=== PATIENT | female | born 1985 | race Caucasian/White ===

== ENCOUNTER 2024-08-25 12:10 | Outpatient (AMB) | payer OTHER, SELFPAY ==
--- OUTSIDE RECORDS SUMMARY | 2024-08-25 12:12 | XMS_ITS ---
Author Organization [facility] Address [address] [place] [address] Care Team Providers Care Copy Center Operator Name Role Phone Collins Davidson Primary Care Provider Julianne Blackwood [phone] REASON FOR VISIT NS today's appt 11/29/23 Encounters Encounter Location Date Provider Diagnosis [facility] [address] [place] [address] 11/29/2023 Julianne Hardy Plan Of Treatment No Information Progress Notes * Lilli MARROQUIN PDOB: [birth year] (39 yo F)Acc No.[id number]:11/29/2023 Patient:?Lilli MARROQUIN :1985???Age:38 Y???Sex:Female Address:[address] [place] [address] [address], [place], [address] * true * Date:? Generated for Printi ng/Fashellig/eTransmitting on:?08/25/2024 12:12 PM EDT
--- NOTE | 2024-08-25 13:02 | A.SPINEOV_ITS ---
Intake Visit Reasons: disorder of sacrum Intake Note: Ms. Kingsley is here today regarding a disorder of her sacrum. MRI done @ [facility] (brought disc). Wreath Machine Tender Required: No Assessment & Plan Assessment & Plan (1) Chronic back pain greater than 3 months duration: Code(s): M54.9 - Dorsalgia, unspecified; G89.29 - Other chronic pain Category: Medical Plan Dear colleague Thank you for referring Lilli Kingsley to the office today with a chief complaint of back pain. HPI: This 39-year-old female is complaining of a 247 pain in the center across the lumbar spine that around towards the lateral part of her hips. The pain has consistently present throughout her life but has worsened in recent months. She denies significant radiation down her legs. Crossing her legs over the knee makes the pain more tolerable. She tosses and turns in bed but can lay on her sides. The pain impacts her daily routine. Her weight has significantly increased due to the pain. A SI joint belt does not help. She had an SI joint injection which gave her 50% relief at most. The following conservative treatment options were tried without success antiinflammatories, tylenol, physician guided home exercise plan, cortisone shots PMH: Hypertension Medications: Gabapentin, lamotrigine , etodolac, glycopyrrolate Allergies: NKDA Social history: Nonsmoker. Physical Exam: Pleasant female. She comes out of a chair without difficulty. Sits with her legs crossed over her knee. When she has the pinpoint the pain she locates it in the center of back. No neurological deficits Radiological Studies: MRI done at [facility] on 08/23/2024 is essentially normal. Impression/Plan: This 39-year-old female suffering from longstanding back pain with a normal MRI of the lumbar spine. She was referred for the possibility of an SI joint fusion. Her symptoms do not represent the more classic SI joint symptoms I see him my practice. Moreover, an injection only gave 50% improvement at most. Therefore, I do not think she is a good candidate for an SI joint fusion. Thank you for allowing me to participate in your patients care. total time spent was 35 minutes in counseling ,coordination of plan, personal review of imaging, surgical decision making and subsequent plan Anibal Hoffman MD, PhD Spine Fellowship Trained Neurosurgeon Director, [facility] Coding Level of Care Code New Pt Level 3 (77143) Diagnoses Chronic back pain greater than 3 months duration M54.9; G89.29
== END 2024-08-25 14:24 | disposition home or self-care (01) ==
LOC: HO.HNS 12:11
PROVIDERS: PCP Family Medicine; Referring Provider Physical Medicine & Rehabilitation; Visit Provider Neurological Surgery
DX: M54.9 Dorsalgia, unspecified (principal); G89.29 Other chronic pain
CPT/HCPCS: 99203

== ENCOUNTER → 2024-08-25 12:10 | Outpatient (BNVA) | payer OTHER, SELFPAY | PROVIDERS: PCP Family Medicine; Referring Provider Physical Medicine & Rehabilitation; Visit Provider Neurological Surgery | DX: M54.9 Dorsalgia, unspecified (principal); G89.29 Other chronic pain | CPT/HCPCS: 99202 ==

== ENCOUNTER 2024-11-29 14:06 | Outpatient (AMB) | payer OTHER, SELFPAY ==
--- OUTSIDE RECORDS SUMMARY | 2023-10-19 07:00 | XMS_ITS ---
Author Organization [facility] Address [address] [facility] [place] [address] Care Team Providers Care Glueline Worker Name Role Phone Collins Davidson Primary Care Provider Julianne Blackwood [phone] Medications Medication SIG (Take, Route, Frequency, Duration) [...] Active Encounters Encounter Location Date Provider Diagnosis [facility] [address] [facility] [place] [address] 10/19/2023 Julianne Hardy Plan Of Treatment No Information Progress Notes * Lilli MARROQUIN PDOB: [birth year] (39 yo F)Acc No.[id number]:10/19/2023 Progress Note Patient: Lilli SANDERS Provider: Hong Hardy DPM :1985 A ge:38 Y S ex:Female Date:10/19/2023 Address:[address] [place] [address] Pcp:Collins Davidson Subjective: * Chief Complaints: * [...] 0 10/19/2023 Generated for Carol antonio/Faxing/eTransmitting on: 0 11/29/2024 03:06 PM EDT History and Physical Notes * HPI (History of Present Illness) Category Sub-Category Detail Notes Category Not es Painful Nails Pt States Last PCP Visit: Date:: 05/20/2023
--- OUTSIDE RECORDS SUMMARY | 2023-11-29 11:30 | XMS_ITS ---
Author Organization [facility] Address [address] [place] [address] Care Team Providers Care Machine Stripper Name Role Phone Collins Davidson Primary Care Provider Julianne Blackwood [phone] Encounters Encounter Location Date Provider Diagnosis [address] [place] [address] 11/29/2023 Julianne Hardy Plan Of Treatment No Information Progress Notes * Lilli MARROQUIN PDOB: [birth year] (39 yo F)Acc No.[id number]:11/29/2023 Progress Note Patient: Vibha SHERRY Lilli Soledad Provider: Hong Hardy DPM :1985 A ge:38 Y S ex:Female Date:11/29/2023 Address:[address] [place] [address] [address], [place], [place] Pcp:Collins Davidson Subjective: * Chief Complaints: * * Medical History: Objective: * Vitals: Assessment: Plan: * Treatment: * Images: * The named appointment provid er may or may not be the originator of this progress note, and it is not deemed complete until electronically signed by the appointment provider. Sign off status: Pending * Provider: Hong Hardy DPM Date: 11/29/2023 Generated for Norai ng/Fashellig/eTransmitting on: 11/29/2024 02:04 PM EDT
--- NOTE | 2024-11-29 14:43 | HO.SPINEOV ---
Intake Visit Reasons: Discuss surgical options Intake Note: Ms. Kingsley is here today to discuss surgical options. Allergies No Known Allergies Allergy (Verified 01/12/25 09:45) Assessment & Plan Assessment & Plan (1) Chronic back pain greater than 3 months duration: Code(s): M54.9 - Dorsalgia, unspecified; G89.29 - Other chronic pain Category: Medical Plan HPI: Today I saw Ms. Kingsley for a subsequent follow up visit after being referred back to our office re: low back pain. She reports that she continues to experience severe low back pain, which she describes as bilateral pains that run down the lateral aspect of her lumbar spine into her bilateral buttocks / hips. She states that she was referred back to our office for consideration of SI joint fusion. Scarlet's previously evaluated by the attending neurosurgeon Dr. Hoffman, who does not believe that she is suffering from an SI joint dysfunction issue. The patient reports no shooting pains into her lower extremities. She denies numbness/tingling/weakness. She is able to rise from a seated position without much pain, and reports she is still able to complete the bulk of her ADLs. She is concerned that her low back & hip pain feels as though it is worsening, and is concerned that her recent lumbar spine injections were not helpful for her. Imaging: MRI of the lumbar spine completed in August of 2024 at [facility] shows normal alignment of lumbar spine with lumbar lordosis preserved. There is normal disc height with no notable posterior disc bulging. There is no compression of the central canal or foramen. No evidence of instability. Exam: The patient has full strength in her bilateral lower extremities. She ambulates well with a nonantalgic non spastic gait. She is able to rise from a seated position without assistance, and is able to get up onto the examination table without issues. She has no significant sensational deficits to light touch on examination. (+) SIJ compression test bilaterally, (-) Klever's bilaterally, (-) Lenny finger test bilaterally, (-) gaenslen's bilaterally, (-) bilateral straight leg raise. Plan: This patient is presenting with bilateral hip pain and low back pain, which can not be explained by MRI imaging. In addition to this she has not had meaningful relief from SIJ injections. This is most likely either a musculoskeletal low back pain or a hip related issue. I think referral to our colleagues in orthopedics for evaluation of hip pathology would be a good next step. Coding Level of Care Code Est Pt Level 3 (57791) Diagnoses Chronic back pain greater than 3 months duration M54.9; G89.29
--- OUTSIDE RECORDS SUMMARY | 2024-11-29 15:06 | XMS_ITS | Encounter Summary ---
Author Organization [facility] Address [address] [place] [address] Phone Care Team Providers Care Application Developer Manager Name Role Phone Collins Davidson DO Primary Care Provider + [phone] Estefania Benites NP Primary Care Provider + [phone] Encounter Details Date Type Department Care Team (Late st Contact Info) Description 12/24/2023 Procedure Pass [facility], [address] [address] Social History Tobacco Use Types Packs/Day Years Used Date Smoking Tobacco: Former Smokeless Tobacco: Never Alcohol Use Standard Drinks/Week Comments No 0 (1 standard drink = 0.6 oz pur e alcohol) Education Answer Date Recorded Are you interested in more education? Not on reg e 07/31/2022 Are you concerned about learning? Not on file 07/31/2022 No 07/31/2022 No 07/31/2022 Digital Access Answer Date Recorded No 08/28/2022 No 08/28/2022 Reliable internet access at home? Not on file 08/28/2022 Device with a working camera? Not on file Comments No Sex and Gender Information Value Date Recorded Sex Assigned at Female 04/12/2017 9:38 AM EST Legal Sex Female 9:09 PM EDT Gender Identity Female 04/12/2017 9:38 AM EST Sexual Orientation Bisexual 04/12/2017 9: 38 AM EST documented as of this encounter Plan of Treatment Upcoming Encounters Date Type Department Care Team (Late st Contact Info) Description 12/13/2024 8:00 AM EDT Pre-Admission Testing Pre Procedure Evaluation [address] [place] [address] Neftaly Gifford, 4 [facility], [place] [address] 12/14/2024 Procedure Pass [place] Admitting Dept - Virtual Department [address] [place] [address] 12/14/2024 9:18 AM EDT Hospital Encounter OR Admitting Dept - Virtual Department [address] [place] [address] Neftaly Gifford, 4 [facility] [place] [address] 12/14/2024 9:18 AM EDT - 12/14/2024 10:51 AM EDT Surgery OR Admitting Dept - Virtual Department [address] [place] [address] Neftaly Gifford, 4 [facility], [place] [address] ARTHROSCOPIC REPAIR LABRUM SHOULDER 12/27/2024 10:20 AM EDT Office Visit [facility] [address] [place] [address] Edmund Gilman PA-C [address] [place] [address] [email or web address] 01/04/2025 2:00 PM EDT Office Visit [facility] [place] [address] Edmund Gilman PA-C [address] [place] [address] [email or web address] Aleksandra Benitez, PT [address] [place] [address] [email or web address] 01/11/2025 2:45 PM EDT Office Visit [facility] [address] [place] [address] Edmund Gilman PA-C [address] [place] [address] [place] [address] [email or web address] Aleksandra Benitez, PT 8 [place] [address] [email or web address] 01/16/2025 3:15 PM EDT Office Visit [facility] [address] [place] [address] Edmund Gilman PA-C [address] [place] [address] [place] [address] [email or web address] Tato Mcguire, COOKY PACKER [address] [place] [address] 01/19/2025 1:30 PM EDT Office Visit [facility] 8 [place] [address] Edmund Gilman PA-C [address] [place] [address] [place] [address] [email or web address] [email or web address] [email or web address], PT 8 [place] [address] [email or web address] 01/23/2025 2:30 PM EDT Office Visit [facility] [address] [place] [address] Edmund Gilman PA-C [address] [place] [address] [place] [address] [email or web address] Jonathanroopa Godwin, COOKY PACKER [address] [place] [address] 01/24/2025 11:00 AM EDT Office Visit [facility] Medicine [address] [place] [address] Neftaly Gifford DO [address] [place] [address] Orthopedics & Sports Medicine, [place] [address] 01/26/2025 1:30 PM EDT Office Visit [address] [place] [address] Edmund Gilman PA-C [address] [place] [address] [place] [address] [email or web address] Aleksandra Benitez, PT [address] [place] [address] [email or web address] 01/30/2025 2:30 PM EDT Office Visit [address] [place] [address] Edmund Gilman PA-C [address] [place] [address] [place] [address] [email or web address] Tato Mcguire, COOKY PACKER [address] [place] [address] 02/02/2025 1:30 PM EDT Office Visit [address] [place] [address] Edmund Gilman PA-C [address] [place] [address] [place] [address] [email or web address] Aleksandra Benitez, PT [address] [place] [address] [email or web address] 02/06/2025 2:30 PM EST Office Visit [facility] [address] [place] [address] Edmund Gilman PA-C [address] [place] [address] [place] [address] [email or web address] Tato Mcguire, COOKY PACKER 8 [place] [address] 02/09/2025 1:30 PM EST Office Visit [address] [place] [address] Edmund Gilman PA-C [address] [place] [address] [place] [address] [email or web address] Aleksandra Benitez, PT 8 [place] [address] [email or web address] 02/13/2025 2:30 PM EST Office Visit [facility] [address] [place] [address] Edmund Gilman PA-C [address] [place] [address] [place] [address] [email or web address] Tato Mcguire, COOKY PACKER [address] [place] [address] 02/16/2025 1:45 PM EST Office Visit [address] [place] [address] Edmund Gilman PA-C [address] [place] [address] [place] [address] [email or web address] Tato Mcguire COOKY PACKER [address] [place] [address] 02/20/2025 2:45 PM EST Office Visit [facility] [address] [place] [address] Edmund Gilman PA-C [address] [place] [address] [place] [address] [email or web address] Aleksandra Benitez, PT 8 [place] [address] [email or web address] 03/26/2025 10:20 AM EST Office Visit [facility] 22 [facility] 3rd Floor, [address] [place] [address] Osmani Pulliam MD, MS 22 [facility], [address] [address] Scheduled Procedures Name Priority Associated Diagnoses Date/Ti me ARTHROSCOPIC REPAIR LABRUM SHOULDER Labral tear of long head of left biceps tendon, initial encounter Arthrosis of left acromioclavicular joint 12/14/2024 9:18 AM EDT documented as of this encounter Visit Diagnoses Not on filedocumented in this encounter Care Teams Application Developer Manager Relationship Specialty Start Date End Date Collins Davidson DO [address] [address] PCP - General Family Medicine 12/22/22 08/22/24 Estefania Benites NP [address] [place] [id number] PCP - General Nurse Practitioner 08/23/24 documented as of this encounter Additional Source Comments The information contained in this document represents components of the legal health record. It is not the complete legal health record.[facility]
--- OUTSIDE RECORDS SUMMARY | 2024-11-29 15:06 | XMS_ITS | Encounter Summary ---
Author Organization [facility] Address [address] [facility] [address] [place] [address] Phone Care Team Providers Care Seam Taper Machine Name Role Phone Scott Kimball MD Unavailable [phone] Isma Crews Unavailable Diana Pro MD Unavailable Sri Quintero MD Unavailable Donna Wick MD Unavailable [phone] Katherine Delgado MD Primary Care Provider Africa Patel STEREO PLOTTER OPERATOR Primary Care Provider Collins Davidson DO Primary Care Provider [phone] Estefania Benites STEREO PLOTTER OPERATOR Primary Care Provider [phone] Encounter Details Date Type Department Care Team (Latest Contact Info) Description 09/15/2017 Transcribe Orders [facility] [address] [place] [address] Brayan Neville MD [address] [facility] [place] [id number] Acquired hypothyroidism (Primary Dx) Social History Tobacco Use Types Packs/Day Years Used Date Smoking Tobacco: Former Smokeless Tobacco: Never Alcohol Use Standard Drinks/Week Comments No 0 (1 standard drink = 0.6 oz pur e alcohol) Comments Unknown Sex and Gender Information Value Date Recorded [...] AM EDT Pre-Admission Testing Pre Procedure Evaluation [address] [place] [address] Neftaly Gifford DO 4 [facility] Orthopedics & Sports Medicine, [place] [address] [email or web address] 12/14/2024 Procedure Pass OR Admitting Dept - Virtual Department [address] [place] [address] 12/14/2024 9:18 AM EDT Hospital Encounter OR Admitting Dept - Virtual Department [address] [place] [address] Neftaly Gifford DO 4 [facility] Orthopedics Sports [facility], [place] [address] 12/14/2024 9:18 AM EDT - 12/14/2024 10:51 AM EDT Surgery OR Admitting Dept - Virtual Department [address] [place] [address] Neftaly Gifford DO 4 [facility] [place] [place] [address] ARTHROSCOPIC REPAIR LABRUM SHOULDER 12/27/2024 10:20 AM EDT Office Visit [facility] Orthopedics & Sports Medicine [address] [place] [address] Edmund Gilman PA-C [address] [place] [address] [place] [address] [email or web address] 01/04/2025 2:00 PM EDT Office Visit [facility] [address] [place] [address] Edmund Gilman PA-C [address] [place] [address] [place] [address] [email or web address] Aleksandra Benitez, PT 8 [place] [address] [email or web address] 01/11/2025 2:45 PM EDT Office Visit [address] [place] [address] Edmund Gilman PA-C [address] [place] [address] [place] [address] [email or web address] Aleksandra Benitez, PT 8 [place] [address] [email or web address] 01/16/2025 3:15 PM EDT Office Visit [address] [place] [address] Edmund Gilman PA-C [address] [place] [address] [place] [address] [email or web address] Tato Mcguire, COMMERCIAL LINES ACCOUNT ASSISTANT [address] [place] [address] 01/19/2025 1:30 PM EDT Office Visit [address] [place] [address] Edmund Gilman PA-C [address] [place] [address] [place] [address] [email or web address] Aleksandra Benitez, PT 8 [place] [address] [email or web address] 01/23/2025 2:30 PM EDT Office Visit [facility] [address] [place] [address] Edmund Gilman PA-C [address] [place] [address] [place] [address] [email or web address] Tato Mcguire, COMMERCIAL LINES ACCOUNT ASSISTANT 8 [place] [address] 01/24/2025 11:00 AM EDT Office Visit [facility] Orthopedics & Sports Medicine [address] [place] [address] Neftaly Gifford DO [address] [place] [address] Orthopedics & Sports Medicine, [facility] [place] [address] 01/26/2025 1:30 PM EDT Office Visit [facility] [address] [place] [address] Edmund Gilman PA-C [address] [place] [address] [place] [address] [email or web address] Aleksandra Benitez, PT 8 [place] [address] [email or web address] 01/30/2025 2:30 PM EDT Office Visit [facility] [address] [place] [address] Edmund Gilman PA-C [address] [place] [address] [place] [address] [email or web address] Tato Mcguire, COMMERCIAL LINES ACCOUNT ASSISTANT 8 [place] [address] [email or web address] 02/02/2025 1:30 PM EDT Office Visit [facility] [address] [place] [address] Edmund Gilman PA-C [address] [place] [address] [place] [address] [email or web address] Aleksandra Benitez, PT 8 [place] [address] [email or web address] 02/06/2025 2:30 PM EST Office Visit [facility] 8 [place] [address] Edmund Gilman PA-C [address] [place] [address] [place] [address] [email or web address] Tato Mcguire, [facility] 8 [place] [address] 02/09/2025 1:30 PM EST Office Visit [facility] [address] [place] [address] Edmund Gilman PA-C [address] [place] [address] [place] [address] [email or web address] Aleksandra Benitez, PT 8 [place] [address] [email or web address] 02/13/2025 2:30 PM EST Office Visit [facility] [address] [place] [address] Edmund Gilman PA-C [address] [place] [address] [place] [address] [email or web address] Tato Mcguire, [facility] 8 [place] [address] 02/16/2025 1:45 PM EST Office Visit [facility] [address] [place] [address] Edmund Gilman PA-C [address] [place] [address] [place] [address] [email or web address] Tato Mcguire, COMMERCIAL LINES ACCOUNT ASSISTANT 8 [place] [address] 02/20/2025 2:45 PM EST Office Visit [facility] 8 [place] [address] Edmund Gilman PA-C [address] [place] [address] [place] [address] [email or web address] Aleksandra Benitez, PT 8 [place] [address] [email or web address] 03/26/2025 10:20 AM EST Office Visit [facility] [address] [place] [address] Dr [address] Floor, [address] [place] [address] Osmani Pulliam MD, MS [address] [facility], [address] [place] [address] [email or web address] Scheduled Procedures Name Priority Associated Diagnoses Date/Ti me ARTHROSCOPIC REPAIR LABRUM SHOULDER Labral tear of long head of left biceps tendon, initial encounter Arthrosis of left acromioclavicular joint 12/14/2024 9:18 AM EDT documented as of this encounter Results * TSH with reflex (09/15/2017 12:22 PM EDT) TSH 0.53 0.27 - 4.20 uIU/mL [facility] Blood 09/15/2017 12:2 2 PM EDT 09/15/2017 12:23 PM EDT us Brayan Neville MD LAB BLOOD ORDERABLES Final Re sult [facility] [address] [place] [address] documented in this encounter Visit Diagnoses Diagnosis Acquired hypothyroidism- Primary Unspecified hypothyroidism Labral tear of long head of left biceps tendon, initial encounter Arthrosis of left acromioclavicular joint documented in this encounter Additional Health Concerns Infection Onset Date Last Indicated Resolved Time MRSA Comment:Import to add expiration date of 06/21/2021 per Infection Control as part of historical infection status reconciliation 02/08/2011 02/08/2011 06/22/19 1:35 AM EDT CoV-Risk 03/11/2020 03/11/2020 03/25/2020 2:04 AM EST CoV-Risk 11/27/2023 11/27/2023 12/08/2023 1:21 AM EDT documented as of this encounter Care Teams Seam Taper Machine Relationship Specialty Start Date End Date Katherine Delgado MD [address] [place] [address] Orthopedics & Sports Medicine, [facility] [place] [address] PCP - General 02/07/17 04/15/19 Africa Patel NP [address] [place] [address] PCP - General Family Medicine 04/16/19 12/21/22 Collins Davidson DO [address] [address] PCP - General Family Medicine 12/22/22 08/22/24 Estefania Benites NP [address] [place] [id number] PCP - General Nurse Practitioner 08/23/24 Scott Kimball MD [address] [place] [address] Historical LMR Provider 01/23/17 0 Isma Crews PA [address] [place] [address] Historical LMR Provider 01/23/17 Diana Pro MD [address] [facility], 2nd [place] [address] Historical LMR Provider 01/23/1704/15 Sri Quintero MD [address] [facility], [address] [place] [address] Historical LMR Provider 01/23/17 04/15/19 Donna Wick MD [address] [place] [address] Orthopedics & Sports Medicine, [place] [address] Historical LMR Provider 01/23/1704/15 documented as of this encounter Additional Source Comments The information contained in this document represents components of the legal health record. It is not the complete legal health record.[facility]
--- OUTSIDE RECORDS SUMMARY | 2024-11-29 15:06 | XMS_ITS | Encounter Summary ---
Author Organization [facility] Address [address] [facility] [address] [place] [address] Encounters * CPT with Medical [facility] at [facility] on 2024-11-19 { reasonForRequest : rash on both arms , patientReports : Rash&qu ot;, denies :[ Lim Flash, circumferential lim , Lim reported with black tissue to the area , Open skin area after a fall with uncontrolled bleeding ,& quot;Abscess/infection with streaking noted, presence of fever or without ], chiefComplaints : Rash , pmh : Chronic Back Pain, Sleep Apnea, Anxiety Disorder, Depression , allergies : Latex , otherAllergies :null, painAss essment : , visitOutcome : , additionalComments :"39 y.o female complains of Rash x 1 week\n\nPt reports bilateral leg and arm rash - See by PCP and is being treated for poison moisés - Itchiness reported - Burning - Raised/redness - Not improving\n\nDenies fever - Denies shortness of breath\n\nCompleted prednisone yesterday - No recent medication changes\n\nWellness check requested\n\nI provided information on the mobile health provider responsetime and advised the patient and/or caregiver to monitor reported signs and symptoms. I discussed the warning signs of when to seek emergency care. } DIANE responds to the listed address for a 39 yof w/ a rash. Upon arrival on scene, pt is waiting outside the building for [facility] arrival. She calls out to [facility] andintroduces herself. She is fully ambulatory, generally well- appearing, and not in acute distress. In the elevator up to her apartment, she begins to scratch at her L wrist and c/o how badly the bumpson her extremities itch. Pt is mildly agitated, but smiling. No facial droop, slurred speech, or one-sided weakness are observed, no stridor or sonorous respirations are present, and she is not bleeding anywhere. Pt sits on the sofa in her small and very cluttered apartment for evaluation. The air smells of cannabis. 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 She has had no dietary changes, no new laundry detergents or products, no new soaps, shampoos, or lotions. She saw her PCP x1 week ago and was prescribed a prednisone taper, which she just finished, but the bumps and the itchiness persist. I just need the itching to stop! Her only known allergy is to latex. Pt consents to evaluation and treatment today. [facility] obtains pt consent. Vital signs are obtained and pt is assessed. Head is atraumatic and normocephalic. Sclera are clear, pupils are PERRL, and extraocular movements are intact. Exam is focus on pt's skin which is w/p/d and her extremities are covered w/ small white wheals w/ red centers, some are scabbed from pt itching. No weeping or purulent drainage is noted. Lesions are limited to the extremities, nothing is noted to pt's torso. Greatest concentration is at the wrists and ankles. [facility] uploads photos for [facility]. [facility] contacts [facility] and discusses the above. [facility] prescribes a higher dose and longer duration prednisone taper as well as a topical steroid cream. [facility] also orders 25mg Benadryl PO for pt and advises she can use it to control the itching as needed. [facility] administers 25mg bendaryl x1 tablet PO. [facility] also recommends pt try changing her laundry detergent to a free" variety as well as trying mild or sensitive skin soap for bathing at least until the rash is gone. Pt thanks [facility] for coming. [facility] clear. Report completed by MAKENNA Abad [id number]. PO_MEDICATION Written by Medical [facility] on 2024-11-19
--- OUTSIDE RECORDS SUMMARY | 2024-11-29 15:07 | XMS_ITS | Encounter Summary ---
Author Organization [facility] Address [address] [facility] [address] [place] [address] Phone Care Team Providers Care Heel Seat Trimmer Name Role Phone Africa Patel WET MACHINE TENDER Primary Care Provider Collins Davidson DO Primary Care Provider Estefania Benites WET MACHINE TENDER Primary Care Provider [phone] Encounter Details Date Type Department Care Team (Late st Contact Info) Description 09/28/2019 Ancillary Orders Virtual Department [address] [place] [address] Radha Damon NP [address] [place] [phone] [email or web address] [employer] Mobile Chronic bilateral low back pain with sciatica, sciatica laterality unspecified Social History Tobacco Use Types Packs/Day Years [...] AM EDT Pre-Admission Testing Pre Procedure Evaluation [address] [place] [address] Neftaly Gifford, DO 4 [facility] Orthopedics & [facility] [place] [address] 12/14/2024 Procedure Pass OR Admitting Dept - Virtual Department [address] [place] [address] 12/14/2024 9:18 AM EDT Hospital Encounter OR Admitting Dept - Virtual Department [address] [place] [address] Neftaly Gifford DO 4 [facility] Orthopedics & Sports [facility] [place] [address] 12/14/2024 9:18 AM EDT - 12/14/2024 10:51 AM EDT Surgery OR Admitting Dept - Virtual Department [address] [place] [address] Neftaly Gifford DO 4 [facility] Orthopedics & Sports [facility] [place] [address] ARTHROSCOPIC REPAIR LABRUM SHOULDER 12/27/2024 10:20 AM EDT Office Visit [facility] Orthopedics & Sports Medicine [address] [place] [address] Edmund Gilman PA-C [address] [place] [address] [place] [address] [email or web address] 01/04/2025 2:00 PM EDT Office Visit [facility] [address] [place] [address] [place] [address] Edmund Gilman PA-C [address] [place] [address] [place] [address] [email or web address] Aleksandra Benitez, PT 8 [place] [address] [email or web address] 01/11/2025 2:45 PM EDT Office Visit [facility] 8 [place] [address] Edmund Gilman PA-C [address] [place] [address] [email or web address] [email or web address] ferreira, PT 8 [place] [address] [email or web address] 01/16/2025 3:15 PM EDT Office Visit [address] [address] Edmund Gilman PA-C [address] [place] [address] [place] [address] [email or web address] Tato Mcguire, ORDER BUILDER 8 [place] [address] 01/19/2025 1:30 PM EDT Office Visit [facility] 8 [place] [address] Edmund Gilman PA-C [address] [place] [address] [place] [address] [email or web address] [email or web address] ferreira, PT 8 [place] [address] [email or web address] 01/23/2025 2:30 PM EDT Office Visit [facility] [address] [place] [address] Edmund Gilman PA-C [address] [place] [address] [place] [address] [email or web address] Tato Mcguire, ORDER BUILDER 8 [place] [address] 01/24/2025 11:00 AM EDT Office Visit [facility] Orthopedics & Sports Medicine [address] [place] [address] Neftaly Gifford DO [address] [place] [address] Orthopedics & Sports Medicine, [facility] [place] [address] 01/26/2025 1:30 PM EDT Office Visit [address] [place] [address] Edmund Gilman PA-C [address] [place] [address] [place] [address] [email or web address] Aleksandra Benitez, PT 8 [place] [address] [email or web address] 01/30/2025 2:30 PM EDT Office Visit [address] [place] [address] Edmund Gilman PA-C [address] [place] [address] [place] [address] [email or web address] Tato Mcguire, ORDER BUILDER 8 [place] [address] 02/02/2025 1:30 PM EDT Office Visit [address] [place] [address] Edmund Gilman PA-C [address] [place] [address] [place] [address] [email or web address] Aleksandra Benitez, PT 8 [place] [address] [email or web address] 02/06/2025 2:30 PM EST Office Visit [facility] [address] [place] [address] Edmund Gilman PA-C [address] [place] [address] [place] [address] [email or web address] Tato Mcguire, ORDER BUILDER 8 [place] [address] 02/09/2025 1:30 PM EST Office Visit [facility] [address] [place] [address] Edmund Gilman PA-C [address] [place] [address] [place] [address] [email or web address] Aleksandra Benitez, PT 8 [place] [address] [email or web address] 02/13/2025 2:30 PM EST Office Visit [facility] [address] [place] [address] Edmund Gilman PA-C [address] [place] [address] [place] [address] [email or web address] Tato Mcguire, ORDER BUILDER 8 [place] [address] 02/16/2025 1:45 PM EST Office Visit [facility] [address] [place] [address] Edmund Gilman PA-C [address] [place] [address] [place] [address] [email or web address] Tato Mcguire, ORDER BUILDER 8 [place] [address] 02/20/2025 2:45 PM EST Office Visit [facility] [address] [place] [address] Edmund Gilman PA-C [address] [place] [address] [place] [address] [email or web address] Stephanie Aleksandra, PT 8 [place] [address] [email or web address] 03/26/2025 10:20 AM EST Office Visit [facility] [address] Floor, [address] [place] [address] Osmani uPlliam MD, MS [address] [facility], [address] [place] [address] Scheduled Procedures Name Priority Associated Diagnoses Date/Ti me ARTHROSCOPIC REPAIR LABRUM SHOULDER Labral tear of long head of left biceps tendon, initial encounter Arthrosis of left acromioclavicular joint 12/14/2024 9:18 AM EDT documented as of this encounter Visit Diagnoses Diagnosis Chronic bilateral low back pain with sciatica, sciatica laterality unspecified Labral tear of long head of left biceps tendon, initial encounter Arthrosis of left acromioclavicular joint documented in this encounter Additional Health Concerns Infection Onset Date Last Indicated Resolved Time MRSA Comment:Import to add expiration date of 06/21/2021 per Infection Control as part of historical infection status reconciliation 02/08/2011 02/08/2011 06/22/19 22 1:35 AM EDT CoV-Risk 03/11/2020 03/11/2020 03/25/2020 2:04 AM EST CoV-Risk 11/27/2023 11/27/2023 12/08/2023 1:21 AM EDT documented as of this encounter Care Teams Heel Seat Trimmer Relationship Specialty Start Date End Date Africa Patel NP [address] [place] [address] PCP - General Family Medicine 04/16/19 12/21/22 Collins Davidson DO [address] [address] PCP - General Family Medicine 12/22/22 08/22/24 Estefania Benites NP [address] [place] [phone] PCP - General Nurse Practitioner 08/23/24 documented as of this encounter Additional Source Comments The information contained in this document represents components of the legal health record. It is not the complete legal health record.[facility]
--- OUTSIDE RECORDS SUMMARY | 2024-11-29 15:07 | XMS_ITS | Encounter Summary ---
Author Organization [facility] Address [address] [place] [address] Phone Care Team Providers Care Senior Design Engineer Name Role Phone Scott Kimball MD Unavailable [phone] Isma Crews Unavailable Diana Por MD Unavailable Sri Quintero MD Unavailable Donna Wick MD Unavailable [phone] Katherine Delgado MD Primary Care Provider Africa Patel ELEVATOR SERVICE TECHNICIAN Primary Care Provider Collins Davidson DO Primary Care Provider Estefania Benites ELEVATOR SERVICE TECHNICIAN Primary Care Provider Encounter Details Date Type Department Care Team (Latest Contact Info) Description 04/29/2017 Transcribe Orders [facility] [address] [address] Brayan Neville MD [address] [place] [id number] Anxiety (Primary Dx); Other depression; Other insomnia Social History Tobacco Use Types Packs/Day Years Used Date Smoking Tobacco: Every Day Smokeless Tobacco: Never Alcohol Use Standard Drinks/Week [...] AM EDT Pre-Admission Testing Pre Procedure Evaluation [address] [place] [address] Neftaly Gifford DO 4 [facility] [place] [place] [address] 12/14/2024 Procedure Pass OR Admitting Dept - Virtual Department [address] [place] [address] 12/14/2024 9:18 AM EDT Hospital Encounter OR Admitting Dept - Virtual Department [address] [place] [address] Neftaly Gifford DO 4 [facility] Orthopedics & Sports [facility], [place] [address] 12/14/2024 9:18 AM EDT - 12/14/2024 10:51 AM EDT Surgery OR Admitting Dept - Virtual Department [address] [place] [address] Neftaly Gifford DO 4 [facility] [place] [address] ARTHROSCOPIC REPAIR LABRUM SHOULDER 12/27/2024 10:20 AM EDT Office Visit [facility] Orthopedics & Sports Medicine [address] [place] [address] Edmund Gilman PA-C [address] [place] [address] [place] [address] [email or web address] 01/04/2025 2:00 PM EDT Office Visit [facility] [address] [place] [address] Edmund Gilman PA-C [address] [place] [address] [place] [address] [email or web address] Aleksandra Benitez, PT 8 [place] [address] [email or web address] 01/11/2025 2:45 PM EDT Office Visit [address] [place] [address] Edmund Gilman PA-C [address] [place] [address] [place] [id number] [email or web address] Aleksandra Benitez, PT 8 [place] [address] [email or web address] 01/16/2025 3:15 PM EDT Office Visit [facility] [address] [place] [address] Edmund Gilman PA-C [address] [place] [address] [place] [address] [email or web address] Tato Mcguire, INTERNAL MEDICINE NURSE PRACTITIONER 8 [place] [address] 01/19/2025 1:30 PM EDT Office Visit [address] [place] [address] Edmund Gilman PA-C [address] [place] [address] [place] [id number] [email or web address] Aleksandra Benitez, PT 8 [place] [address] [email or web address] 01/23/2025 2:30 PM EDT Office Visit [facility] [address] [place] [address] Edmund Gilman PA-C [address] [place] [address] [place] [address] [email or web address] Tato Mcguire, INTERNAL MEDICINE NURSE PRACTITIONER 8 [place] [address] 01/24/2025 11:00 AM EDT Office Visit [facility] Orthopedics & Sports Medicine [address] [place] [address] Neftaly Gifford DO [address] [place] [address] Orthopedics & Sports Medicine, [place] [address] 01/26/2025 1:30 PM EDT Office Visit [facility] [address] [place] [address] Edmund Gilman PA-C [address] [place] [address] [place] [address] [email or web address] Aleksandra Benitez, PT 8 [place] [address] [email or web address] 01/30/2025 2:30 PM EDT Office Visit [facility] [address] [place] [address] Edmund Gilman PA-C [address] [place] [address] [place] [address] [email or web address] Tato Mcguire, INTERNAL MEDICINE NURSE PRACTITIONER 8 [place] [address] 02/02/2025 1:30 PM EDT Office Visit [facility] [address] [place] [address] Edmund Gilman PA-C [address] [place] [address] [place] [address] [email or web address] [email or web address], PT 8 [place] [address] [email or web address] 02/06/2025 2:30 PM EST Office Visit [address] [place] [address] Edmund Gilman PA-C [address] [place] [address] [place] [address] [email or web address] Tato Mcguire, [address] [address] [email or web address] 02/09/2025 1:30 PM EST Office Visit [address] [place] [address] Edmund Gilman PA-C [address] [place] [address] [place] [address] [email or web address] Aleksandra, PT 8 [place] [address] [email or web address] 02/13/2025 2:30 PM EST Office Visit [address] [place] [address] Edmund Gilman PA-C [address] [place] [address] [place] [address] [email or web address] Tato Mcguire, [facility] 8 [place] [address] [email or web address] 02/16/2025 1:45 PM EST Office Visit [address] [place] [address] Edmund Gilman PA-C [address] [place] [address] [email or web address] Tato Mcguire, INTERNAL MEDICINE NURSE PRACTITIONER 8 [place] [address] 02/20/2025 2:45 PM EST Office Visit [facility] 8 [place] [address] Edmund Gilman PA-C [address] [place] [address] [place] [address] [email or web address] Aleksandra Benitez, PT 8 [place] [address] [email or web address] 03/26/2025 10:20 AM EST Office Visit [facility] [address] [place] [address] 3rd Floor, [address] [place] [address] Osmani Pulliam MD, MS 22 [facility], [address] [place] [address] [email or web address] Scheduled Procedures Name Priority Associated Diagnoses Date/Ti me ARTHROSCOPIC REPAIR LABRUM SHOULDER Labral tear of long head of left biceps tendon, initial encounter Arthrosis of left acromioclavicular joint 12/14/2024 9:18 AM EDT documented as of this encounter Results * (ABNORMAL) 25-OH vitamin D (04/29/2017 12:34 PM EST) 25 [place] VIT D (TOTAL) 23(L) 30 - 1,000 ng/mL [facility] Blood 04/29/2017 12:3 4 PM EST 04/29/2017 12:36 PM EST us Brayan Neville MD LAB BLOOD ORDERABLES Final Re sult [facility] [address] [place] [address] * Vitamin B12 (04/29/2017 12:34 PM EST) VITAMIN B12 404 243 - 894 pg/mL [facility] Blood 04/29/2017 12:3 4 PM EST 04/29/2017 12:36 PM EST us Brayan Neville MD LAB BLOOD ORDERABLES Final Re sult Performing Organization Address City/[facility]/ZIP Co de Phone Number [address] [address] * Iron (04/29/2017 12:34 PM EST) IRON 39 30 - 160 ug/dL [facility] Blood 04/29/2017 12:3 4 PM EST 04/29/2017 12:36 PM EST us Brayan Neville MD LAB BLOOD ORDERABLES Final Re sult Performing Organization Address [facility] Co de Phone Number [address] [address] * Ferritin (04/29/2017 12:34 PM EST) FERRITIN 53 13 - 150 ug/L [facility] Blood 04/29/2017 12:3 4 PM EST 04/29/2017 12:36 PM EST us Brayan Neville MD LAB BLOOD ORDERABLES Final Re sult Performing Organization Address [facility] Co de Phone Number [address] [address] * Folate (04/29/2017 12:34 PM EST) FOLIC ACID 12.7 4.2 - 19.9 ng/mL [facility] Blood 04/29/2017 12:3 4 PM EST 04/29/2017 12:36 PM EST us Brayan Neville MD LAB BLOOD ORDERABLES Final Re sult [facility] [address] [place] [address] * (ABNORMAL) CBC and differential (04/29/2017 12:34 PM EST) WBC 5.89 3.40 - 11.20 K/uL [facility] RBC 4.39 3.80 - 4.80 M/uL [facility] HGB 13.0 12.0 - 15.0 g/dL [facility] HCT 39.2 36.0 - 46.0 % [facility] PLT 265 130 - 400 K/uL [facility] MCV 89.3 79.0 - 98.0 fL [facility] MCH 29.6 27.0 - 34.8 pg [facility] MCHC 33.2 31.5 - 36.0 g/dL [facility] RDW 13.0 10.8 - 14.6 % [facility] MPV 11.0 9.4 - 12.4 fl [facility] NRBC 0.00 /100 WBCs [facility] ABSOLUTE NRBC 0.00 K/uL [facility] DIFF METHOD Auto [facility] NEUTS 66.5 45.30 - 77.70 % [facility] LYMPHS 17.7 12.30 - 39.70 % [facility] MONOS 10.2 4.10 - 12.80 % [facility] EOS 4.9 0 - 7.2 % [facility] BASOS 0.5 0 - 2.80 % [facility] Granulocytes, immature (%) 0.2 0.0 - 0.9 % [facility] ABSOLUTE NEUTS 3.92 1.40 - 7.70 K/uL [facility] ABSOLUTE LYMPHS 1.04 0.60 - 3.20 K/uL [facility] ABSOLUTE MONOS 0.60(H) 0.11 - 0.59 K/uL [facility] ABSOLUTE EOS 0.29 0.01 - 0.50 K/uL [facility] ABSOLUTE BASOS 0.03 0.00 - 0.08 K/uL [facility] Granulocytes, immature 0.01 0.00 - 0.05 K/uL [facility] Blood 04/29/2017 12:3 4 PM EST 04/29/2017 12:36 PM EST us Brayan Neville MD LAB BLOOD ORDERABLES Final Re sult Performing Organization Address [facility]/ZIP Co de Phone Number [address] [address] * (ABNORMAL) TSH with reflex (04/29/2017 12:34 PM EST) TSH 0.25(L) 0.27 - 4.20 uIU/mL [facility] Blood 04/29/2017 12:3 4 PM EST 04/29/2017 12:36 PM EST us Brayan Neville MD LAB BLOOD ORDERABLES Final Re sult Performing Organization Address [facility] Co de Phone Number [address] [address] * Basic metabolic panel (04/29/2017 12:34 PM EST) SODIUM 139 133 - 146 mmol/L [facility] CHLORIDE 103 96 - 108 mmol/L [facility] POTASSIUM 4.4 3.3 - 5.1 mmol/L [facility] CO2 28 21 - 35 mmol/L [facility] BUN 19 6 - 19 mg/dL [facility] CREATININE 0.70 0.5 - 1.5 mg/dL [facility] GLUCOSE 77 70 - 99 mg/dL [facility] CALCIUM 9.5 8.4 - 10.3 mg/dL [facility] EGFR >60 60 - 1000 mL/min/1.7 3m2 [facility] Comment:Abnormal if <60. If patient is -Macanese, multiply the result by 1.21. ANION GAP 12 10 - 20 mmol/L [facility] Blood 04/29/2017 12:3 4 PM EST 04/29/2017 12:36 PM EST us Brayan Neville MD LAB BLOOD ORDERABLES Final Re sult [facility] [address] [place] [address] documented in this encounter Visit Diagnoses Diagnosis Anxiety- Primary Anxiety state, unspecified Other depression Other insomnia Labral tear of long head of left [...] documented as of this encounter Care Teams Senior Design Engineer Relationship Specialty Start Date End Date Katherine Delgado MD [address] [place] [address] Orthopedics & Sports Medicine, [place] [address] PCP - General 02/07/17 04/15/19 Africa Patel NP [address] [place] [address] [email or web address] PCP - General Family Medicine 04/16/19 12/21/22 Collins Davidson DO [address] [address] PCP - General Family Medicine 12/22/22 08/22/24 Estefania Benites NP [address] [place] [id number] PCP - General Nurse Practitioner 08/23/24 Scott Kimball MD [address] [place] [address] Historical LMR Provider 01/23/17 0 Isma Crews PA [address] [place] [address] Historical LMR Provider 01/23/17 Diana Pro MD 15 [facility], 2nd [place] [address] Historical LMR Provider 01/23/1704/15 Sri Quintero MD 22 [facility], [address] [place] [address] Historical LMR Provider 01/23/17 04/15/19 Donna Wick MD [address] [place] [address] Orthopedics & Sports Medicine, [place] [address] Historical LMR Provider 01/23/1704/15 documented as of this encounter Additional Source Comments The information contained in this document represents components of the legal health record. It is not the complete legal health record.[facility]
--- OUTSIDE RECORDS SUMMARY | 2024-11-29 15:07 | XMS_ITS | Patient Health Record ---
Author Organization [facility] Address [address] [facility] [place] [address] Care Team Providers Care Supervisor Newspaper Deliveries Name Role Phone Collins Davidson Primary Care Provider Julianne Blackwood Unavailable [phone] Allergies No Known Allergies Reason For Referral No Information Medications Medication SIG (Take, Route, Frequency, Duration) Notes Start Date End Date Status Ibuprofen 800 MG Oral; Duration: 4 PRN Active Topiramate Not-Takin g lamoTRIgine 150 MG as directed Orally Active Vitamin D3 Not-Takin g Meloxicam 15 MG TAKE 1 TABLET BY EVERY DAY Oral; Duration: 30 PRN Active Fluocinonide Not-Rashad ing Fluticasone Propionate 50 MCG/ACT Nasal; Duration: 90 Active Clotrimazole-Betamethasone Not-Taking cloNIDine HCl 0.2 MG Oral; Duration: 30 Active Cephalexin 500 MG 1 tablet Orally Twic e a day; Duration: 7 days Not-Taking Skyrizi Pen 150 MG/ML Subcutaneous; Duration: 90 Active Desmopressin Acetate Not-Taking Not-Taking traZODone HCl Not-Ta belinda Gabapentin 300mg three times a day orally daily Active Work Note . . . Patient off work 12/22/17 due to foot procedure 12/22/2017 Not-Taking Cimzia 2 X 200 MG/ML Subcutaneous; Duration: 28 Active OXcarbazepine Not-Ta belinda buPROPion HCl Not-Ta belinda Immunizations Vaccine Route Administration Date Status Comme nts COVID-19 Pfizer BioNTech Vaccine Unknown 07/24/2020 Administered 1st 07/03/2020 2nd Dose: 07/24/20 Social History Tobacco Use: Social History Observation Description Date Details (start date - stop date) Former Smoker NA - NA Tobacco Use/Smoking Question Answer Notes Are you a: former smoker Additional Findings: Tobacco Non-User Current no n-smoker Alcohol Screen Question Answer Notes Did you have a drink containing alcohol in the p ast year? No Points 0 Interpretation Negative Tobacco use other than smoking: Question Answer Notes Are you an other tobacco user? 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 Plan Of Treatment Pending Test Test Name Order Date 52824-Xtsut Biopsy 0.5cm 12/22/2017 Insurance Providers Payer Name Payer Address Payer Phone Subscriber Number Group Number Insured Name Patient Relationship to Insured Coverage Start Date Coverage End Date [facility] [employer] Claims [address] [place] [address] [phone] [id number] Lilli Kingsley Self - patient is the insured Medical (General) History Medical History History ICD Code Anxiety asthma Back,Hip,and Knee pain Depression Headaches Chicken pox Psoriasis/eczema Hidradenitis suppurativa Surgical History Surgery Date(Month/Year) leg surgery-broken 1995 11/02/20 Hospitalization History Reason Date(Month/Year) Abcess to be drained 2022 11/02/2020 [facility] Hidradenitis suppurativa 2021
--- OUTSIDE RECORDS SUMMARY | 2024-11-29 15:08 | XMS_ITS | Encounter Summary ---
Author Organization [facility] Address [address] [place] [address] Phone Care Team Providers Care Conference Services Manager Name Role Phone Estefania Benites NP Primary Care Provider + [phone] Encounter Details Date Type Department Care Team (Late st Contact Info) Description 10/17/2024 Procedure Pass [facility], [address] [address] Social History Tobacco Use Types Packs/Day Years Used Date Smoking Tobacco: Former Cigarettes 0.3 18 2 004 - 2021 Smokeless Tobacco: Never Alcohol Use Standard Drinks/Week [...] with a working camera? Not on file Intimate Partner Violence Answer Date R ecorded Are you denied basic needs s uch as food, clothing, or medical care? No 01/14/2024 In the past 12 months have y ou been in a relationship with a person who hurts, threatens, or tries to control you? No 01/14/2024 Are you denied basic needs s uch as food, clothing, or medical care? No 01/14/2024 In the past 12 months have y ou been in a relationship with a person who hurts, threatens, or tries to control you? No 01/14/2024 Comments No Sex and Gender Information Value Date Recorded Sex Assigned at Female 04/12/2017 9:38 AM EST Legal Sex Female 9:09 PM EDT Gender Identity Female 04/12/2017 9:38 AM EST Sexual Orientation Bisexual 04/12/2017 9: 38 AM EST documented as of this encounter Last Filed Vital Signs Vital Sign Reading Time Taken Comments Blood Pressure - - Pulse - - Temperature - - Respiratory Rate - - Oxygen Saturation - - Inhaled Oxygen Concentration - - Weight 104.3 kg (230 lb) 10/19/2024 6:05 PM EDT Height 157.5 cm (5' 2 ) 10/19/2024 6:05 PM EDT Body Mass Index 42.07 10/19/2024 6:05 PM EDT documented in this encounter Plan of Treatment Upcoming Encounters Date Type Department Care Team (Late st Contact Info) Description 12/13/2024 8:00 AM EDT Pre-Admission Testing Pre Procedure Evaluation [address] [place] [address] Neftaly Gifford, DO 4 [facility] Orthopedics Sports [facility] [place] [address] 12/14/2024 Procedure Pass OR Admitting Dept - Virtual Department [address] [place] [address] 12/14/2024 9:18 AM EDT Hospital Encounter OR Admitting Dept - Virtual Department [address] [place] [address] Neftaly Gifford, 4 [facility] [place] [address] 12/14/2024 9:18 AM EDT - 12/14/2024 10:51 AM EDT Surgery OR Admitting Dept - Virtual Department [address] [place] [address] Neftaly Gifford DO 4 [facility] [place] [place] [address] ARTHROSCOPIC REPAIR LABRUM SHOULDER 12/27/2024 10:20 AM EDT Office Visit [facility] Orthopedics & Sports Medicine [address] [place] [address] Edmund Gilman PA-C [address] [place] [address] [place] [address] [email or web address] 01/04/2025 2:00 PM EDT Office Visit [address] [place] [address] Edmund Gilman PA-C [address] [place] [address] [place] [address] [email or web address] Aleksandra Benitez, PT 8 [place] [address] [email or web address] 01/11/2025 2:45 PM EDT Office Visit [address] [place] [address] Edmund Gilman PA-C [address] [place] [address] [place] [address] [email or web address] Aleksandra Benitez, PT 8 [place] [address] [email or web address] 01/16/2025 3:15 PM EDT Office Visit [address] [place] [address] Edmund Gilman PA-C [address] [place] [address] [place] [address] [email or web address] Tato Mcguire, RECREATIONAL COUNSELOR 8 [place] [address] 01/19/2025 1:30 PM EDT Office Visit [facility] [address] [place] [address] Edmund Gilman PA-C [address] [place] [address] [place] [address] [email or web address] Aleksandra Benitez, PT 8 [place] [address] [email or web address] 01/23/2025 2:30 PM EDT Office Visit [facility] [address] [place] [address] Edmund Gilman PA-C [address] [place] [address] [place] [address] [email or web address] Tato Mcguire, RECREATIONAL COUNSELOR 8 [place] [address] 01/24/2025 11:00 AM EDT Office Visit [facility] Orthopedics & Sports Medicine [address] [place] [address] Neftaly Gifford DO [address] [place] [address] [facility] [place] [address] 01/26/2025 1:30 PM EDT Office Visit [facility] [address] [place] [address] Edmund Gilman PA-C [address] [place] [address] [place] [address] [email or web address] Aleksandra Benitez, PT 8 [place] [address] [email or web address] 01/30/2025 2:30 PM EDT Office Visit [facility] [address] [place] [address] Edmund Gilman PA-C [address] [place] [address] [email or web address] Tato Mcguire, [facility] 8 [place] [address] 02/02/2025 1:30 PM EDT Office Visit [facility] [address] [place] [address] Edmund Gilman PA-C [address] [place] [address] [place] [address] [email or web address] Aleksandra Benitez, PT 8 [place] [address] [email or web address] 02/06/2025 2:30 PM EST Office Visit [facility] [address] [place] [address] Edmund Gilman PA-C [address] [place] [address] [place] [address] [email or web address] Tato Mcguire, RECREATIONAL COUNSELOR 8 [place] [address] 02/09/2025 1:30 PM EST Office Visit [facility] [address] [place] [address] Edmund Gilman PA-C [address] [place] [address] [email or web address] Aleksandra Benitez, PT 8 [place] [address] [email or web address] 02/13/2025 2:30 PM EST Office Visit [facility] [address] [place] [address] Edmund Gilman PA-C [address] [place] [address] [email or web address] Tato Mcguire, RECREATIONAL COUNSELOR 8 [place] [address] 02/16/2025 1:45 PM EST Office Visit [facility] [address] [place] [address] Edmund Gilman PA-C [address] [place] [address] [place] [address] [email or web address] Tato Mcguire, RECREATIONAL COUNSELOR 8 [place] [address] 02/20/2025 2:45 PM EST Office Visit [facility] [address] [place] [address] Edmund Gilman PA-C [address] [place] [address] [email or web address] Aleksandra Benitez, PT 8 [place] [address] [email or web address] 03/26/2025 10:20 AM EST Office Visit [facility] [address] [place] [address] 3rd Floor, [address] [place] [address] Osmani Pulliam MD, MS 22 [facility], [address] [address] Scheduled Procedures Name Priority Associated Diagnoses Date/Ti fl ARTHROSCOPIC REPAIR LABRUM SHOULDER Labral tear of long head of left biceps tendon, initial encounter Arthrosis of left acromioclavicular joint 12/14/2024 9:18 AM EDT documented as of this encounter Visit Diagnoses Not on filedocumented in this encounter Care Teams Conference Services Manager Relationship Specialty Start Date End Date Estefania Benites NP [facility] [place] [address] PCP - General Nurse Practitioner 08/23/24 documented as of this encounter Additional Source Comments The information contained in this document represents components of the legal health record. It is not the complete legal health record.[facility]
--- OUTSIDE RECORDS SUMMARY | 2024-11-29 15:08 | XMS_ITS | Continuity of Care Document ---
Author Name [facility], Medical Address [address] [place] [address] Organization Unknown Address [address] [place] [address] Medications No known medications Problems No known problems
--- OUTSIDE RECORDS SUMMARY | 2024-11-29 15:08 | XMS_ITS | Encounter Summary ---
Author Organization [facility] Address [email or web address] [place] [address] Phone Care Team Providers Care Apartment Rental Clerk Name Role Phone Estefania Benites NP Primary Care Provider + [phone] Encounter Details Date Type Department Care Team (Late st Contact Info) Description 10/17/2024 Procedure Pass [facility], X-Ray - [address] [address] Social History Tobacco Use Types Packs/Day Years [...] AM EDT Pre-Admission Testing Pre Procedure Evaluation [address] [place] [address] Neftaly Gifford DO 4 [facility], [place] [address] 12/14/2024 Procedure Pass OR Admitting Dept - Virtual Department [address] [place] [address] 12/14/2024 9:18 AM EDT Hospital Encounter OR Admitting Dept - Virtual Department [address] [place] [address] Neftaly Gifford DO 4 [facility], [place] [address] 12/14/2024 9:18 AM EDT - 12/14/2024 10:51 AM EDT Surgery OR Admitting Dept - Virtual Department [address] [place] [address] Neftaly Gifford DO 4 [facility], [place] [address] ARTHROSCOPIC REPAIR LABRUM SHOULDER 12/27/2024 10:20 AM EDT Office Visit [facility] Medicine [address] [place] [address] Edmund Gilman PA-C [address] [place] [address] [place] [address] [email or web address] 01/04/2025 2:00 PM EDT Office Visit [address] [place] [address] Edmund Gilman PA-C [address] [place] [address] [place] [address] [email or web address] Aleksandra Benitez, PT [address] [place] [address] [email or web address] 01/11/2025 2:45 PM EDT Office Visit [address] [place] [address] Edmund Gilman PA-C [address] [place] [address] [place] [address] [email or web address] Aleksandra Benitez, PT [address] [place] [address] [email or web address] 01/16/2025 3:15 PM EDT Office Visit [address] [place] [address] Edmund Gilman PA-C [address] [place] [address] [place] [address] [email or web address] Tato Mcguire, CLOTH DESIZING RANGE TENDER [address] [place] [address] 01/19/2025 1:30 PM EDT Office Visit [address] [place] [address] Edmund Gilman PA-C [address] [place] [address] [place] [address] [email or web address] Aleksandra Benitez, PT [address] [place] [address] [email or web address] 01/23/2025 2:30 PM EDT Office Visit [facility] [address] [place] [address] Edmund Gilman PA-C [address] [place] [address] [place] [address] [email or web address] Tato Mcguire, CLOTH DESIZING RANGE TENDER [address] [place] [address] 01/24/2025 11:00 AM EDT Office Visit [facility] Sports Medicine [address] [place] [address] Neftaly Gifford DO [address] [place] [address] Orthopedics & Sports Medicine, [place] [address] 01/26/2025 1:30 PM EDT Office Visit [address] [place] [address] Edmund Gilman PA-C [address] [place] [address] [place] [address] [email or web address] Aleksandra Benitez, PT [address] [place] [address] [email or web address] 01/30/2025 2:30 PM EDT Office Visit [facility] [address] [place] [address] Edmund Gilman PA-C [address] [place] [address] [place] [address] [email or web address] Tato Mcguire, CLOTH DESIZING RANGE TENDER [address] [place] [address] 02/02/2025 1:30 PM EDT Office Visit [facility] [address] [place] [address] Edmund Gilman PA-C [address] [place] [address] [place] [address] [email or web address] Aleksandra Benitez, PT [address] [place] [address] [email or web address] 02/06/2025 2:30 PM EST Office Visit [address] [place] [address] Edmund Gilman PA-C [address] [place] [address] [place] [address] [email or web address] Tato Mcguire, CLOTH DESIZING RANGE TENDER [address] [place] [address] 02/09/2025 1:30 PM EST Office Visit [address] [place] [address] Edmund Gilman PA-C [address] [place] [address] [place] [address] [email or web address] Aleksandra Benitez, PT [address] [place] [address] [email or web address] 02/13/2025 2:30 PM EST Office Visit [facility] [address] [place] [address] Edmund Gilman PA-C [address] [place] [address] [place] [address] [email or web address] Tato Mcguire, CLOTH DESIZING RANGE TENDER [address] [place] [address] 02/16/2025 1:45 PM EST Office Visit [facility] [address] [place] [address] Edmund Gilman PA-C [address] [place] [address] [place] [address] [email or web address] Tato Mcguire, CLOTH DESIZING RANGE TENDER [address] [place] [address] 02/20/2025 2:45 PM EST Office Visit [facility] [address] [place] [address] Edmund Gilman PA-C [address] [place] [address] [place] [address] [email or web address] Aleksandra Benitez, PT [address] [place] [address] [email or web address] 03/26/2025 10:20 AM EST Office Visit [facility] [address] [place] [address] [address]rd Floor, [address] [place] [address] Osmani Pulliam MD, MS 22 [facility], [address] [place] [address] Scheduled Procedures Name Priority Associated Diagnoses Date/Ti me ARTHROSCOPIC REPAIR LABRUM SHOULDER Labral tear of long head of left biceps tendon, initial encounter Arthrosis of left acromioclavicular joint 12/14/2024 9:18 AM EDT documented as of this encounter Visit Diagnoses Not on filedocumented in this encounter Care Teams Apartment Rental Clerk Relationship Specialty Start Date End Date Estefania Benites [place] [id number] PCP - General Nurse Practitioner 08/23/24 documented as of this encounter Additional Source Comments The information contained in this document represents components of the legal health record. It is not the complete legal health record.[facility]
--- OUTSIDE RECORDS SUMMARY | 2024-11-29 15:08 | XMS_ITS | Encounter Summary ---
Author Organization [facility] Address [address] [place] [address] Phone Care Team Providers Care Addictions Recovery Specialist Name Role Phone Collins Davidson DO Primary Care Provider + [phone] Estefania Benites NP Primary Care Provider + [phone] Encounter Details Date Type Department Care Team (Late st Contact Info) Description 07/21/2024 Procedure Pass [facility], [facility] [address] [place] [address] Social History Tobacco Use Types Packs/Day Years [...] AM EDT Pre-Admission Testing Pre Procedure Evaluation [address] [place] [address] Neftaly Gifford DO 4 [facility] Orthopedics & Sports Medicine, [facility] [place] [address] 12/14/2024 Procedure Pass [place] Admitting Dept - Virtual Department [address] [place] [address] 12/14/2024 9:18 AM EDT Hospital Encounter OR Admitting Dept - Virtual Department [address] [place] [address] Neftaly Gifford DO [address] [place] [address] Orthopedics Sports [facility], [place] [address] 12/14/2024 9:18 AM EDT - 12/14/2024 10:51 AM EDT Surgery OR Admitting Dept - Virtual Department [address] [place] [address] Neftaly Gifford DO 4 [facility] Orthoped[facility] Sports [facility], [facility] [place] [address] ARTHROSCOPIC REPAIR LABRUM SHOULDER 12/27/2024 10:20 AM EDT Office Visit [facility] Orthopedics & Sports Medicine [address] [place] [address] Edmund Gilman PA-C [address] [place] [address] [place] [address] [email or web address] 01/04/2025 2:00 PM EDT Office Visit [facility] [address] [place] [address] Edmund Gilman PA-C [address] [place] [address] [place] [address] [email or web address] Aleksandra Benitez, PT [address] [place] [address] [email or web address] 01/11/2025 2:45 PM EDT Office Visit [address] [place] [address] Edmund Gilman PA-C [address] [place] [address] [place] [address] [email or web address] Aleksandra Benitez, PT [address] [place] [address] [email or web address] 01/16/2025 3:15 PM EDT Office Visit [facility] [address] [place] [address] Edmund Gilman PA-C [address] [place] [address] [place] [address] [email or web address] Tato Mcguire, CREDIT ASSISTANT [address] [place] [address] 01/19/2025 1:30 PM EDT Office Visit [facility] [address] [place] [address] Edmund Gilman PA-C [address] [place] [address] [place] [address] [email or web address] Aleksandra Benitez, PT [address] [place] [address] [email or web address] 01/23/2025 2:30 PM EDT Office Visit [facility] [address] [place] [address] Edmund Gilman PA-C [address] [place] [address] [place] [address] [email or web address] Tato Mcguire, CREDIT ASSISTANT [address] [place] [address] 01/24/2025 11:00 AM EDT Office Visit [facility] Orthopedics & Sports Medicine [address] [place] [address] Neftaly Gifford DO [address] [place] [address] Orthopedics & Sports Medicine, [place] [address] 01/26/2025 1:30 PM EDT Office Visit [address] [address] Edmund Gilman PA-C [address] [place] [address] [place] [address] [email or web address] Aleksandra Benitez, PT [address] [place] [address] [email or web address] 01/30/2025 2:30 PM EDT Office Visit [facility] [address] [place] [address] Edmund Gilman PA-C [address] [place] [address] [place] [address] [email or web address] Tato Mcguire, CREDIT ASSISTANT [address] [place] [address] 02/02/2025 1:30 PM EDT Office Visit [facility] [address] [place] [address] Edmund Gilman PA-C [address] [place] [address] [place] [address] [email or web address] Aleksandra Benitez, PT [address] [place] [address] [email or web address] 02/06/2025 2:30 PM EST Office Visit [address] [place] [address] Edmund Gilman PA-C [address] [place] [address] [place] [address] [email or web address] Tato Mcguire, CREDIT ASSISTANT [address] [place] [address] 02/09/2025 1:30 PM EST Office Visit [address] [place] [address] Edmund Gilman PA-C [address] [place] [address] [place] [address] [email or web address] Aleksandra Benitez, PT [address] [place] [address] [email or web address] 02/13/2025 2:30 PM EST Office Visit [facility] [address] [place] [address] Edmund Gilman PA-C [address] [place] [address] [place] [address] [email or web address] Tato Mcguire, CREDIT ASSISTANT [address] [place] [address] 02/16/2025 1:45 PM EST Office Visit [facility] [address] [place] [address] Edmund Gilman PA-C [address] [place] [address] [place] [address] [email or web address] Tato Mcguire, CREDIT ASSISTANT [address] [place] [address] 02/20/2025 2:45 PM EST Office Visit [facility] [address] [place] [address] Edmund iGlman PA-C [address] [place] [address] [place] [address] [email or web address] Aleksandra Benitez, PT [address] [place] [address] [email or web address] 03/26/2025 10:20 AM EST Office Visit [facility] [address] [place] [address] [address]rd Floor, [address] [place] [address] Osmani Pulliam MD, MS 22 [facility], [address] [address] Scheduled Procedures Name Priority Associated Diagnoses Date/Ti me ARTHROSCOPIC REPAIR LABRUM SHOULDER Labral tear of long head of left biceps tendon, initial encounter Arthrosis of left acromioclavicular joint 12/14/2024 9:18 AM EDT documented as of this encounter Visit Diagnoses Not on filedocumented in this encounter Care Teams Addictions Recovery Specialist Relationship Specialty Start Date End Date Collins Davidson DO [address] [address] PCP - General Family Medicine 12/22/22 08/22/24 Estefania Benites NP [address] [place] [address] PCP - General Nurse Practitioner 08/23/24 documented as of this encounter Additional Source Comments The information contained in this document represents components of the legal health record. It is not the complete legal health record.[facility]
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
== END 2024-11-29 15:15 | disposition home or self-care (01) ==
LOC: HO.HNS 14:07
PROVIDERS: PCP Family Medicine; Visit Provider Neurological Surgery
DX: M54.9 Dorsalgia, unspecified (principal); G89.29 Other chronic pain
CPT/HCPCS: 99213

== ENCOUNTER → 2024-11-29 14:06 | Outpatient (BNVA) | payer OTHER, SELFPAY | PROVIDERS: PCP Family Medicine; Visit Provider Neurological Surgery | DX: M54.50 Low back pain, unspecified (principal); G89.29 Other chronic pain | CPT/HCPCS: 99212 ==

== ENCOUNTER 2025-01-12 09:41 | Outpatient (AMB) | payer OTHER, SELFPAY ==
--- OUTSIDE RECORDS SUMMARY | 2023-10-19 07:00 | XMS_ITS ---
Author Organization [facility] Address [address] [facility] [place] [address] Care Team Providers Care Mask Former Name Role Phone Collins Davidson Primary Care Provider Julianne Blackwood [phone] Medications Medication SIG (Take, Route, Frequency, Duration) Notes Start Date End Date Status Topiramate Not-Takin g Fluocinonide Not-Rashad ing Clotrimazole-Betamethasone Not-Taking Cephalexin 500 MG 1 tablet Orally Twic e a day; Duration: 7 days Not-Taking Desmopressin Acetate Not-Taking Vitamin D3 Not-Takin g Not-Taking Work Note . . . Patient off work 12/22/17 due to foot procedure 12/22/2017 Not-Taking OXcarbazepine Not-Ta belinda buPROPion HCl Not-Ta belinda Meloxicam 15 MG TAKE 1 TABLET BY MELISA TH EVERY DAY Oral; Duration: 30 PRN Active Fluticasone Propionate 50 MCG/ACT Nasal; Duration: 90 Active cloNIDine HCl 0.2 MG Oral; Duration: 30 Active Skyrizi Pen 150 MG/ML Subcutaneous; Duration: 90 Active traZODone HCl Not-Ta belinda Ibuprofen 800 MG Oral; Duration: 4 PRN Active lamoTRIgine 150 MG as directed Orally Active Gabapentin 300mg three times a day orally daily Active Cimzia 2 X 200 MG/ML Subcutaneous; Duration: 28 Active Encounters Encounter Location Date Provider [facility] [address] [facility] [place] [address] 10/19/2023 Julianne Hardy Plan Of Treatment No Information Progress Notes * Lilli MARROQUIN PDOB: [birth year] (39 yo F)Acc No.[id number]:10/19/2023 Progress Note Patient: Lilli SANDERS Provider: Hong Hardy DPM :1985 A ge:38 Y S ex:Female Date:10/19/2023 Address:[address] [place] [address] Pcp:Collins Davidson Subjective: * Chief Complaints: * * HPI: P ainful Nails: Pt States Last PCP Visit: D ate: 0 05/20/2023 * Medical History: * Medications: T aking Gabapentin 300mg tablets three times a day orally daily , Taking Cimzia 2 X 200 MG/ML Prefilled Syringe Kit Subcutaneous , Taking lamoTRIgine 150 MG Tablet as directed Orally , Taking Ibuprofen 800 MG Tablet Oral , Notes to Pharmacist: PRN, Taking Fluticasone Propionate 50 MCG/ACT Suspension Nasal , Taking Meloxicam 15 MG Tablet TAKE 1 TABLET BY MOUTH EVERY DAY Oral , Notes to Pharmacist: PRN, Taking Skyrizi Pen 150 MG/ML Solution Auto-injector Subcutaneous , Taking cloNIDine HCl 0.2 MG Tablet Oral , Not-Taking/PRN traZODone HCl , Not-Taking/PRN , Not-Taking/PRN Work Note . . . . Patient off work 12/22/17 due to foot procedure , Not-Taking/PRN buPROPion HCl , Not-Taking/PRN OXcarbazepine , Not-Taking/PRN Vitamin D3 , Not-Taking/PRN Topiramate , Not-Taking/PRN Clotrimazole-Betamethasone , Not-Taking/PRN Fluocinonide , Not-Taking/PRN Desmopressin Acetate , Not- Taking/PRN Cephalexin 500 MG Tablet 1 tablet Orally Twice a day Objective: * Vitals: Assessment: Plan: * Treatment: * Images: * The named appointment provid er may or may not be the originator of this progress note, and it is not deemed complete until electronically signed by the appointment provider. Sign off status: Pending * Provider: Hong Hardy DPM Date: 0 10/19/2023 Generated for Carol antonio/Faxing/eTransmitting on: 1 08:17 AM EDT History and Physical Notes * HPI (History of Present Illness) Category Sub-Category Detail Notes Category Not es Painful Nails Pt States Last PCP Visit: Date:: 05/20/2023
--- OUTSIDE RECORDS SUMMARY | 2023-11-29 11:30 | XMS_ITS ---
Author Organization [facility] Address [address] [place] [address] Care Team Providers Care Motorcoach Operator Name Role Phone Collins Davidson Primary Care Provider Julianne Blackwood [phone] Encounters Encounter Location Date Provider Diagnosis [address] [place] [address] 11/29/2023 Julianne Hardy Plan Of Treatment No Information Progress Notes * Lilli MARROQUIN PDOB: [birth year] (39 yo F)Acc No.[id number]:11/29/2023 Progress Note Patient: Vibha SHERRY Lilli Soledad Provider: Hong Hardy DPM :1985 A ge:38 Y S ex:Female Date:11/29/2023 Address:[address] [place] [address] [address], [place], [place] Pcp:Collins Davidson Subjective: * Chief Complaints: * * Medical History: Objective: * Vitals: Assessment: Plan: * Treatment: * Images: * The named appointment provid er may or may not be the originator of this progress note, and it is not deemed complete until electronically signed by the appointment provider. Sign off status: Pending * Provider: Hong Hardy DPM Date: 0 11/29/2023 Generated for Norai ng/Fashellig/eTransmitting on: 1 08:17 AM EDT
--- NOTE | 2025-01-12 09:43 | MHC.OFFVIS ---
Vital Signs 01/12/25 09:44 Height 5 ft 2 in Weight 229 lb BMI 41.9 BP 112/66 Blood Pressure Location Lt radial Position Sitting Respiration 16 Pulse 80 Pulse Source Pulse Oximeter Pulse Oximetry (%) 98 Oxygen Delivery Method Room Air Intake Visit Reasons: DISORDER OF SACRUM Veterinary Pathologist Required: No Allergies No Known Allergies Allergy (Verified 01/12/25 09:45) Medication List - Last Reconciled 01/12/25 by Gracie Conroy LPN gabapentin mg PO gabapentin 600 mg PO BEDTIME glycopyrrolate 2 mg PO Q8H lamotrigine 50 mg PO DAILY lamotrigine 200 mg PO DAILY risankizumab-rzaa (Skyrizi) mg subcut trazodone mg PO BEDTIME PRN HPI HPI DISORDER OF SACRUM: Details: History of Present Illness The patient is a 39-year-old female presenting with low back pain attributed to sacroiliac joint dysfunction. The pain has been persistent for about one year without a known cause and is described as a 10/10 shooting and stabbing sensation on the left side, causing a limp. She also experiences aching in the bilateral calves and right ankle, as well as overlying the left sacroiliac joint. The pain is constant throughout the day, severely impacting her ability to sleep and perform daily activities. She is currently taking gabapentin 800 mg in the morning and afternoon, and 600 mg in the evening. Her history includes two right leg fractures during childhood. She has undergone physical therapy, massage therapy, and bilateral sacroiliac joint injections, which provided temporary relief during the anesthetic phase. Despite these interventions, the pain persists, and she reports that previous MRI findings were normal, though she continues to experience significant discomfort. The patient also reports restless legs syndrome, for which she is taking gabapentin, and she has been attempting weight loss with Zepbound injections. She has gained weight, currently weighing 230 pounds, and has been on the weight loss medication for five weeks. Pain Description - Onset: Approximately 1 year ago, no known cause - Quality: Shooting, stabbing sensation - Location: Left side, overlying left sacroiliac joint - Radiation: Aching in bilateral calves and right ankle - Exacerbating factors: Bending forward and backward, lateral bending - Relieving factors: Temporary relief with sacroiliac joint injections - Interference: Causes limp, affects sleep and daily activities Physical Exam - Musculoskeletal: Pain exacerbated by bending forward and backward, with shooting pain on lateral bending - Anterior column loading is positive Results - MRI: Degenerative changes at L5-S1, Modic changes at L4, L5, S1 Pain Management - Affect: Pain severely impacts sleep and daily activities - Analgesia: Gabapentin 800 mg in the morning and afternoon, 600 mg in the evening; pain level 10/10 - Adverse Effects: None reported - Activities of Daily Living: Unable to perform daily activities, causes limp - Aberrant Drug Related Behaviors: None reported [facility] Medical History (Updated 01/23/25 @ 11:34 by Agapito Lozano MD) Obesity Physical Exam Vital Signs: Last Vital Signs Pulse 80 01/12/25 09:44 Resp 16 01/12/25 09:44 BP 112/66 01/12/25 09:44 Pulse Ox 98 01/12/25 09:44 Oxygen Delivery Method Room Air 01/12/25 09:44 BMI result Body Mass Index 41.9 Assessment & Plan Assessment & Plan (1) Vertebrogenic low back pain: Code(s): M54.51 - Vertebrogenic low back pain Category: Medical Plan Plan Patient was informed and verbally consented to the use of an ambient scribe for clinic note documentation during this visit. 1. Sacroiliac Joint Dysfunction - Considered vertebrogenic pain ablation as a treatment option. - Provided brochure and video for patient education on the procedure. 2. Degenerative Changes At L5-S1 - Discussed potential for vertebrogenic pain ablation. - MRI findings support candidacy for the procedure. 3. Restless Legs Syndrome - Continued management with gabapentin. 4. Vertebrogenic Low Back Pain - Discussed vertebrogenic pain ablation as a treatment option. Will request authorization for L4, L5, S1 Intracept BVN ablation. - Provided educational materials for patient consideration. Discussion Notes I discussed with the patient the potential for vertebrogenic pain ablation to address her symptoms, explaining the procedure and its benefits. I provided her with a brochure and video to review at home, encouraging her to consider the information and decide if she wishes to proceed. Patient Instructions - Review the brochure and video provided on vertebrogenic pain ablation. - Consider the procedure as a treatment option and inform the clinic of your decision. - Continue current medication regimen as prescribed. Coding Level of Care Code New Pt Level 4 (57309) Diagnoses Vertebrogenic low back pain M54.51
[2025-01-12 09:44] VITALS: BP 112/66; PULSE 80; RESP 16; O2SAT 98; BMI 41.9
--- OUTSIDE RECORDS SUMMARY | 2025-01-12 10:23 | XMS_ITS | Patient Health Record ---
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
--- OUTSIDE RECORDS SUMMARY | 2025-01-12 10:23 | XMS_ITS | Data Portability ---
Author Organization [place] - [facility], Allergy Address [address] [place] [address] Care Team Providers Care Meat Stuffer Name Role Phone RADHA SCHILLING Primary Care Provider Assessment Encounter Date Assessment Date Assessment LastModified by Organization Details LastModified Time 09/22/2023 09/22/2023 The patient is doing well following tonsillectomy without post operative complications. The pathology was reviewed and is benign. A postoperative sleep study has been ordered for one month from now, but she is also working with sleep medicine and an oral surgeon about trying an oral appliance. If they feel differently about the timing of the sleep study it can be scheduled accordingly. She may follow up with us as needed. [email or web address] Not available 09/22/2023 10:32:58 02/28/2024 02/28/2024 38 year old female presents to review her postoperative sleep study. She is status post tonsillectomy on 08/05/[address] Short. Preoperative sleep study 01/05/23 overall AHI was 34.1. Postoperative sleep study 01/21/24 overall AHI was 12.0. I have recommended continue use of CPAP. She also may try oral appliance with dentist. Right ear was meticulously cleaned today with fine pics and suction. Patient is encouraged to avoid Q-tips in her ears relative to packing the wax in tighter. She may use mineral oil as needed. She will follow up on an as needed basis. [email or web address] Not available 02/28/2024 12:06:45 Plan of Treatment Reminders Order Date Submit Date Provider Last Modified By Organization Details Last Modified Time Details Appointments None recorded. Lab None recorded. Referral None recorded. Procedures None recorded. Surgeries None recorded. Imaging polysomnog jennifer, diagnostic , 6 yrs or older - please schedule one month from now 2023 024 [facility], [address] [place], [address], 10:16:20 Medication Orders None recorded. Patient TargetsNo targets recorded. Patient InstructionsNo instructions recorded. Reason for Referral None Reported. Results Created Date Observation Date Name Description Value Unit Range Abnormal Flag Note LastModifiedBy Organization Detail LastModifiedTime 11/23/19 24 05/13/2023 imagi ng/di agnos tic resul t No observ ation record ed. [email or web address] Not Available 22:26:12 11/23/19 24 05/14/2023 imagi ng/di agnos tic resul t No observ ation record ed. [email or web address] Not Available 22:26:25 11/23/19 24 08/10/2023 imagi ng/di agnos tic resul t No observ ation record ed. [email or web address] Available 22:26:33 11/23/19 24 12/10/2022 imagi ng/di agnos tic resul t No observ ation record ed. [email or web address] Not Available 22:26:55 11/23/19 24 12/10/2022 imagi ng/di agnos tic resul t No observ ation record ed. [email or web address] Not Available 22:27:00 11/23/19 24 12/10/2022 imagi ng/di agnos tic resul t No observ ation record ed. [email or web address] Not Available 22:27:05 11/23/19 24 01/07/2023 imagi ng/di agnos tic resul t No observ ation record ed. [email or web address] Not Available 22:27:06 03/09/20 24 01/21/2024 polys omnog jennifer, diagn ostic , 6 yrs or older No observ ation record ed. [email or web address] [address] [place], [address], 03/09/2024 10:16:20 03/09/20 24 01/05/2023 sleep study , diagn ostic (PROC ) No observ ation record ed. [email or web address] [address] [place], [address], 03/09/2024 10:17:00 06/29/19 25 01/05/2023 sleep study , diagn ostic (PROC ) No observ ation record ed. [email or web address] Not Available 2024 13:44:04 Result Notes None recorded. Problems Name Problem SNOMED Code Status Onset Date Resolution Date Notes Provider Name and Address Organization Details Recorded Time Hypertrop hy of tonsils 12947821 Active 2022 Hypertrop hy of tonsils; Note: Date Diagnosed : 10/16/2022 11:36 AM (J35.1) Not Available [facility] 4 02:41:40 Dysphagia 17736015 Active 2022 Dysphagia , unspecifi ed; Note: Date Diagnosed : 10/16/2022 11:36 AM (R13.10) Not Available [facility] 4 02:41:33 Hypertrop hy of adenoids 026524972 Active 2022 Hypertrop hy of adenoids; Note: Date Diagnosed : 03/05/2023 4:30 PM (J35.2) Not Available [facility] 4 02:41:37 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 Procedures Surgical History Date Name Laterality Status Provider Name and Address Organization Details Recorded Time 5 FFL_RE completed TON SHORT MD [address],[facility] [address], [place], [address], [place] - [facility] 06/21/2024 10:27:45 4 Cerumen removal without microscope right completed Chapis Holden [place] - [facility] 02/28/2024 12:06:02 Imaging Results None recorded. Procedure Notes None recorded. Medical Equipment None Reported. Allergies No known drug allergies Medications Name Sig Start Date Stop Date Status Note LastModified by Organization Details LastModified Time glycopyrrol ate 1 mg tablet TAKE 2 TABLETS BY MOUTH TWICE A DAY active Not Available Not Available No t Available cyclobenzap rine 10 mg tablet TAKE 1 TABLET BY MOUTH THREE TIMES A DAY FOR 14 DAYS NEEDED FOR MUSCLE SPASMS active Not Available Not Available No t Available hydroxyzine pamoate 100 mg capsule TAKE 1 CAPSULE BY MOUTH DAILY AT BEDTIME active Not Available Not Available No t Available methocarbam ol 500 mg tablet TAKE 2 TABLETS BY MOUTH 4 TIMES A DAY NEEDED FOR MUSCLE SPASMS FOR 10 DAYS active Not Available Not Available No t Available lamotrigine 150 mg tablet TAKE 1 TABLET BY MOUTH DAILY 02/25 completed Not Available Not Available Not Available gabapentin 600 mg tablet TAKE 1 TABLET BY MOUTH TWICE DAILY IN MORNING AND AFTERNOON active Not Available Not Available No t Available lamotrigine 200 mg tablet TAKE 1 TABLET BY MOUTH ONCE DAILY active Not Available Not Available No t Available meloxicam 15 mg tablet TAKE 1 TABLET BY MOUTH EVERY DAY active Not Available Not Available No t Available prednisone 20 mg tablet TAKE 2 TABLETS BY MOUTH EVERY DAY FOR 5 DAYS 09/21 completed Not Available Not Available Not Available gabapentin 400 mg capsule TAKE 1 CAPSULE BY MOUTH TWICE A DAY active Not Available Not Available No t Available oxycodone 5 mg/5 mL oral solution TAKE 4 ML BY MOUTH EVERY 6 HOURS NEEDED FOR SEVERE PAIN 09/21 completed Not Available Not Available Not Available hydroxyzine HCl 50 mg tablet TAKE 1 TABLET BY MOUTH 30 MINUTES BEDTIME NEEDED FOR ANXIETY. MAY INCREASE TO 2 TABLETS IF NEEDED active Not Available Not Available No t Available sulfamethox azole 800 mg-trimetho prim 160 mg tablet TAKE 1 TABLET BY MOUTH TWICE A DAY 09/21 completed Not Available Not Available Not Available doxycycline monohydrate 100 mg tablet TAKE 1 TABLET TWICE A DAY WITH FOOD AND WATER. WEAR SUNSCREEN . active Not Available Not Available No t Available tramadol 50 mg tablet TAKE 1 TABLET BY MOUTH EVERY 8 HOURS NEEDED FOR PAIN X 7 DAYS 09/21 completed Not Available Not Available Not Available ofloxacin 0.3 % ear drops INSTILL 5 DROPS BY EACH EAR ROUTE 2 TIMES A DAY FOR 7 DAYS. active Not Available Not Available No t Available clonidine HCl 0.2 mg tablet TAKE 1 TABLET BY MOUTH AT BEDTIME AND 1/2 TAB NEEDED FOR INSOMNIA 02/25 completed Not Available Not Available Not Available amoxicillin 875 mg tablet PLEASE SEE ATTACHED FOR DETAILED DIRECTION S active Not Available Not Available No t Available clindamycin 1 % topical gel APPLY TO CYSTS TWICE A DAY active Not Available Not Available No t Available gabapentin 800 mg tablet TAKE 1 TABLET BY MOUTH EVERYDAY AT BEDTIME active Not Available Not Available No t Available trazodone 100 mg tablet TAKE 2 TABLETS BY MOUTH AT BEDTIME 09/21 completed Not Available Not Available Not Available lorazepam 2 mg tablet TAKE 1-2 TABLETS BY MOUTH 30-[address]/MRI SCAN active Not Available Not Available No t Available doxycycline monohydrate 100 mg capsule TAKE 1 CAPSULE BY MOUTH TWICE A DAY FOR 7 DAYS active Not Available Not Available No t Available trazodone 150 mg tablet TAKE 2 TABLETS BY MOUTH EVERY DAY AT BEDTIME active Not Available Not Available No t Available oseltamivir 75 mg capsule TAKE 1 CAPSULE BY MOUTH TWICE A DAY FOR 5 DAYS 02/25 completed Not Available Not Available Not Available diclofenac sodium 75 mg tablet,tucker yed release TAKE 1 TABLET BY MOUTH TWICE A DAY active Not Available Not Available No t Available gabapentin 100 mg capsule active Not Available Not Available Not Available methylpredn isolone 4 mg tablets in a dose pack TAKE 6 TABLETS ON DAY 1 DIRECTED ON PACKAGE AND DECREASE BY 1 TAB EACH DAY FOR A TOTAL OF 6 DAYS active Not Available Not Available No t Available albuterol sulfate HFA 90 mcg/actuati on aerosol inhaler INHALE 2 PUFFS EVERY 6 HOURS NEEDED WHEEZE OR SHORTNESS OF BREATH 02/25 completed Not Available Not Available Not Available fluticasone propionate 50 mcg/actuati on nasal spray,suspe nsion SPRAY 1 SPRAY BY NASAL ROUTE EVERY DAY 02/25 completed Not Available Not Available Not Available Hibiclens 4 % topical liquid APPLY TO GROIN DAILY, WASH OFF active Not Available Not Available No t Available naproxen 500 mg tablet TAKE 1 TABLET BY MOUTH TWICE A DAY WITH MEALS active Not Available Not Available No t Available diazepam 5 mg tablet TAKE 1-2 TABLETS BY MOUTH 30-[address]/MRI SCAN active Not Available Not Available No t Available oxycodone 5 mg tablet TAKE 1 TABLET EVERY 4 - 6 HOURS NEEDED FOR POST-OPER ATIVE PAIN 09/21 completed Not Available Not Available Not Available cyclobenzap rine 5 mg tablet TAKE 1 TABLET BY MOUTH EVERY DAY AT BEDTIME FOR 7 DAYS active Not Available Not Available No t Available budesonide- formoterol HFA 160 mcg-4.5 mcg/actuati on aerosol inhaler INHALE 2 PUFFS TWICE A DAY RINSE MOUTH AND THROAT AFTER USE 02/25 completed Not Available Not Available Not Available Skyrizi 150 mg/mL subcutaneou s pen injector INJECT 1 ML UNDER THE SKIN EVERY 3 MONTH active Not Available Not Available No t Available Wegovy 0.25 mg/0.5 mL subcutaneou s pen injector active Not Available Not Available Not Available Wegovy 0.5 mg/0.5 mL subcutaneou s pen injector active Not Available Not Available Not Available Zepbound 2.5 mg/0.5 mL subcutaneou s pen injector INJECT 2.5 MG SUBCUTANE OUS INJECTION EVERY WEEK, ROTATE INJECTION SITES active Not Available Not Available No t Available Vitals Date Recorded Body height Body mass index (BMI) Body weight Provider Name and Address Organization Details Last Updated DateTime 06/21/2024 160.02 cm 39.7 kg/m2 805313.69 g Khalif Medina [place] - [facility] 06/21/2024 10:07:38 Date Recorded Body height Body mass index (BMI) Body weight Provider Name and Address Organization Details Last Updated DateTime 09/22/2023 160.02 cm 39.7 kg/m2 319536.69 g Stephanie Ruben [place] - [facility] 09/22/2023 10:06:23 Date Recorded Body height Body mass index (BMI) Body weight Provider Name and Address Organization Details Last Updated DateTime 02/28/2024 160.02 cm 39.7 kg/m2 931232.69 g Katherineyuval Prajapati [place] - [facility] 02/28/2024 11:20:01 Social History None recorded. Functional Status None recorded. Mental Status None recorded. Family History Nothing Reported. Medical History Condition Response Allergies/Hayfever N Heart Problems N Anxiety Y Tonsil Infections N Emphysema N Migraines N Thyroid Problems N Glaucoma N Depression Y COPD N Developmental Delay N Nasal or Sinus Problems N Anemia N Immune System Disorder N Anesthesia Complications N Heart Attack ([place]) N Other Skin Condition N Diabetes N Rhinitis N Bleeding Disorder N Food Allergy N Arthritis Y Hearing Loss N Hyperlipidemia N Cancer N Stroke N Dementia N Nasal polyps N Asthma Y High Cholesterol N Sleep Disorder Y GERD/Reflux N Liver Disease N Headaches N Fibromyalgia N Hypertension N Speech Delay N Kidney Disease N Gynecological HistoryNo gynecological history recorded. Obstetrics History GPAL:G 0 P 0 0 0 0 Past Encounters Encounter ID Performer Location Encounter Start Date Encounter Closed Date Diagnosis/Indication Diagnosis SNOMED-CT Code Diagnosis ICD10 Code Diagnosis IMO Codes Diagnosis Note [id number] PRAVEENA NIETO PA-C [facility] on [address] [place] [id number] 09/22/2023 09:54:53 09/22/2023 16:47:49 Obstructive sleep apnea syndrome 71261871 G47.33 [id number] CHAPIS HOLDEN PA-C [facility] on [address] [place] [id number] 02/28/2024 11:07:34 02/28/2024 13:08:04 Obstructive sleep apnea syndrome 10521521 G47.33 Hypertroph y of tonsils 44543789 J35.1 Hypertroph y of adenoids 518939795 J35.2 Impacted c erumen in right ear 4127699523 741677 H61.21 [id number] TON SHORT MD [facility] on [address] [place] [id number] 06/21/2024 09:42:41 06/21/2024 10:36:22 Obstructive sleep apnea syndrome 37391359 G47.33 I reviewed her prior sleep study which was done in January 2023 which was before her tonsillect galo. She is meeting with her sleep medicine physician soon and I asked her to request an updated study. She has not tolerated CPAP well in the past and she may be a candidate for the Inspire implant but she would need a sleep study that is up-to-date since her tonsillect galo before bhavik nava Oropharyng eal dysphagia 68596467 R13.12 Laryngosco py was normal. There is symmetric mild lingual tonsil hypertroph y without lesions. This has been biopsied in the past and was benign. I recommend a modified barium swallow to assess her swallowing issue with follow-up thereafter . Health Concerns Section Related Observation LastModified by Organization Detai ls LastModified Time None Recorded Concern Status LastModified by Organization Details LastModified Time None Recorded Advance Directives Directive None Recorded Payers Insurance Date Sequence Insurance Name Policy Number Policy Moody Covered Member ID Moody Member ID Guarantor Name 06/21/2024 1 [facility] - DOS ON OR AFTER 2022 - MEDICARE ADVANTAGE [place] (MEDICARE REPLACEMENT/ADV ANTAGE - PPO) Lilli Kingsley [id number] Lilli Kingsley Notes Date Note Type Note Provider Name and Address Organization Details Recorded Time 09/22/2023 text/html ROS as noted in the HPI 37 year old female with tonsillar hypertrophy and tongue base hypertrophy presents today for postoperative visit s/p tonsillectomy on 08/05/23 with . She was seen for throat discomfort and HOMERO, she underwent DL with biopsy to rule out malignancy, all biopsies were negative. She elected to proceed with tonsillectomy in hopes to help some of the throat discomfort and help with the sleep apnea.She does feel her throat discomfort is a bit better. She continues to have trouble with sleep, only getting about 4-5 hours of sleep per night. Praveena tamayo [place] - [facility] 09/22/2023 10:33:16 02/28/2024 text/html ROS as noted in the HPI 38 year old female presents to the office to review her postoperative sleep study. She is status post tonsillectomy on 08/05/[address] Short. She continues to use CPAP but is also working with her dentist to obtain an oral appliance. Her throat discomfort improved with tonsillectomy. POLINA GAMA MD [address] [facility],[address], [address], [place] - [facility] 02/28/2024 19:49:14 06/21/2024 text/html ROS as noted in the HPI She presents with dysphagia. It takes a lot of efforts to swallow. She can get liquids and solids down but it takes a lot of effort. She had biopsies of BOT fullness 05/2023 which were benign. Tonsillectomy was 08/2023. She also has HOMERO and is using a mouth guard. She has a physician in sleep medicine. I reviewed her prior sleep study. It was done before her tonsillectomy. She has tried CPAP but been unable to tolerate it. She is currently using a dental appliance. TON SHORT MD [address] [facility],[address] [address], [place], [address], [facility] - [facility] 06/21/2024 10:35:37 OBGyn Episode No OBEpisode recorded.
== END 2025-01-12 11:20 | disposition home or self-care (01) ==
LOC: HO.PMC 09:42
PROVIDERS: PCP Family Medicine; Visit Provider Internal Medicine
DX: M54.51 Vertebrogenic low back pain (principal)
CPT/HCPCS: 99204

== ENCOUNTER → 2025-01-12 09:41 | Outpatient (BNVA) | payer OTHER, SELFPAY | PROVIDERS: PCP Family Medicine; Visit Provider Internal Medicine | DX: M53.3 Sacrococcygeal disorders, not elsewhere classified (principal); M54.51 Vertebrogenic low back pain; G25.81 Restless legs syndrome; E66.9 Obesity, unspecified; Z68.41 Body mass index [BMI] 40.0-44.9, adult | CPT/HCPCS: 99202 ==